=== PATIENT | born 1995 | race Caucasian/White ===

== ENCOUNTER 2021-09-02 15:58 | Emergency (ER) | payer MEDICAID ==
[~2021-09-02] VITALS: Ht 170.2 cm; Wt 65.8 kg
[2021-09-02 15:58] VITALS: BP 132/90
--- NOTE | 2021-09-02 15:58 | NUR ---
Dr. Babcock is evaluating patient on [facility]
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
--- NOTE | 2021-09-02 16:00 | NUR ---
BIBA to bed 10
--- NOTE | 2021-09-02 16:28 | NUR ---
Blood sample collected, handed to CPT Barbi at ER bedside
[2021-09-02 16:45] LABS: BASOPHILS % (AUTO) 0.5 % (0.0-2.0); EOSINOPHILS # (AUTO) 0.4 K/uL (0-0.4); EOSINOPHILS % (AUTO) 4.6 % (0.0-4.0); HEMOGLOBIN 14.7 g/dL (12.0-16.0); LYMPHOCYTES # (AUTO) 1.6 K/uL (2.5-16.5); LYMPHOCYTES % (AUTO) 19.3 % (20.5-51.1); MEAN CORPUSCULAR HEMOGLOBIN 26 pg (27-31); MEAN CORPUSCULAR HGB CONC 33 g/dL (33-37); MEAN CORPUSCULAR VOLUME 78.9 fL (80-94); MONOCYTES # (AUTO) 0.5 K/uL (0.8-1.0); MONOCYTES % (AUTO) 6.1 % (1.7-9.3); NEUTROPHILS # (AUTO) 5.7 K/uL (1.8-7.7); NEUTROPHILS % (AUTO) 69.5 % (42.2-75.2); PLATELET COUNT (AUTO) 309 K/uL (140-450); RED BLOOD CELL COUNT(AUTO) 5.58 MIL/uL (4.20-6.1); RED CELL DISTRIBUTION WIDTH 14.2 % (11.6-13.7); WHITE BLOOD COUNT (AUTO) 8.2 K/uL (4.8-10.8)
[2021-09-02 17:02] LABS: ALBUMIN 3.8 g/dL (3.4-5.0); ANION GAP 14.2 (8-16); CARBON DIOXIDE 26.5 mmol/L (21-32); CREATININE 0.8 mg/dL (0.6-1.3); POTASSIUM 3.7 mmol/L (3.5-5.1); TOTAL BILIRUBIN 0.4 mg/dL (0.0-1.0)
--- NOTE | 2021-09-02 17:30 | NUR ---
Patient trnasportd to CT by wheelchair
--- NOTE | 2021-09-02 17:48 | NUR ---
Pt returned from CT by wheelchair
[2021-09-02 18:04] VITALS: BP 138/76
[2021-09-02] MEDS ORDERED: KETOROLAC 15 MG/ML VIAL IVP ONE (18:10)
--- NOTE | 2021-09-02 18:10 | NUR ---
Pt states pain 5/[address] Babcock made aware and verbal order received for Toradol 15mg IVP. Verified and read back.
[2021-09-02] MEDS ORDERED: KETOROLAC 15 MG/ML VIAL ONE (18:11)
--- NOTE | 2021-09-02 18:38 | NUR ---
C-spine cleared by Dr. Babcock. Collar removed. Moves all extremities before and after collar removal.
--- NOTE | 2021-09-02 19:18 | NUR ---
Patient discharged with v/s stable. Written and verbal after care instructions given and explained. Patient verbalized understanding. Ambulatory with steady gait. All questions addressed prior to discharge. Advised to follow up with PMD.
== END 2021-09-02 19:18 | disposition home or self-care (01) ==
LOC: MED 15:58
DX: M54.9 Dorsalgia, unspecified (principal); V89.2XXA Person injured in unspecified motor-vehicle accident, traffic, initial encounter; Y93.89 Activity, other specified; Y92.89 Other specified places as the place of occurrence of the external cause; Y99.8 Other external cause status
CPT/HCPCS: 36415; 71260; 72125; 74177; 80053; 85025; 96374; 99285; J1885; Q9967